=== PATIENT | male | born 1950 | race Caucasian/White ===

== ENCOUNTER 2018-03-18 15:57 | Emergency (ER) | payer MEDICAID, MEDICARE ==
[~2018-03-18] VITALS: Ht 171.4 cm; Wt 90.5 kg
[2018-03-18 16:02] VITALS: BP 144/72
[2018-03-18] MEDS ORDERED: LIDOcaine 1.5% w/epinephrine 1:200,000 5ml ampul IJ ONE (16:20)
[2018-03-18] MEDS ORDERED: mupirocin 2% ointment 22GM TP ONE (16:20)
[2018-03-18] MEDS ORDERED: TETanus/Pertussis (Acell)/Diphther VAC/PF (Tdap-Adult) 0.5ml syringe IM ONE (16:20)
[2018-03-18] MEDS ORDERED: CEPH-572 PO (17:26)
== END 2018-03-18 17:45 | disposition home or self-care (01) ==
LOC: ER 15:58
DX: S62.111A Displaced fracture of triquetrum [cuneiform] bone, right wrist, initial encounter for closed fracture (principal); S61.421A Laceration with foreign body of right hand, initial encounter; S50.311A Abrasion of right elbow, initial encounter; S50.811A Abrasion of right forearm, initial encounter; S50.312A Abrasion of left elbow, initial encounter; Z88.5 Allergy status to narcotic agent; V29.88XA Motorcycle rider (driver) (passenger) injured in other specified transport accidents, initial encounter; Y93.55 Activity, bike riding; Y92.413 State road as the place of occurrence of the external cause; Y99.9 Unspecified external cause status
CPT/HCPCS: 12041; 29125; 73130; 90471; 90715; 99284; A6449; J3490